=== PATIENT | female | born 1990 | race Asian ===

== ENCOUNTER 2017-04-27 10:57 | Emergency (ER) | payer BC ==
[~2017-04-27] VITALS: Ht 160 cm; Wt 50.8 kg
[2017-04-27 11:14] VITALS: Ht 160 cm; Wt 50.8 kg
[2017-04-27 12:11] LABS: microscopic required? YES; urine erythrocyte 2+ (NEGATIVE)
[2017-04-27 15:28] LABS: CALCIUM 8.6 mg/dL (8.5-10.1); CARBON DIOXIDE 30.1 mmol/L (21-32); CHLORIDE SERUM 101 mmol/L (98-107); GFR1 > 60 mL/min; GLUCOSE SERUM 101 mg/dL (74-106); POTASSIUM SERUM 3.1 mmol/L (3.5-5.1); SODIUM SERUM 141 mmol/L (136-145)
[2017-04-27 15:30] LABS: PLATELET COUNT 139 x10^3mcL (130-400); RED CELL DISTRIBUTION WIDTH 11.9 % (11.5-14.5)
[2017-04-27 15:34] LABS: ALBUMIN 4.2 g/dL (3.4-5.0); ALKALINE PHOSPHATASE 65 U/L (46-116); ALT/SGPT 27 U/L (14-59); AST/SGOT 15 U/L (15-37); BILIRUBIN TOTAL 0.8 mg/dL (0.20-1.00); TOTAL PROTEIN, SERUM 7.8 g/dL (6.4-8.2)
[2017-04-27 15:37] LABS: BASOPHIL % 0 % (0-2)
[2017-04-27 19:13] VITALS: BP 95/66
== END 2017-04-27 19:41 | disposition home or self-care (01) ==
LOC: ED 10:57
PROVIDERS: Emergency Medicine
DX: E87.6 Hypokalemia (principal); E86.0 Dehydration
CPT/HCPCS: 83880; 87804; J1885; J7030; Q0092